=== PATIENT | female | born 1955 | race Caucasian/White ===

== ENCOUNTER 2018-07-13 13:41 | Emergency (ER) | payer OTHER ==
[~2018-07-13] VITALS: Ht 154.9 cm; Wt 98.4 kg
[2018-07-13 14:47] LABS: Source, Urine Clean Catch
[2018-07-13 14:57] LABS: Appearance, Urine Clear (Clear); Bilirubin, Urine Neg (Neg); Blood, Urine 5+ (Neg); Color, Urine Yellow (P-Yellow); Glucose Qualitative, Urine Neg (Neg); Ketones, Urine Neg (Neg); Leukocyte Esterase, Urine 1+ (Neg); Nitrite, Urine Neg (Neg); Protein, Urine 2+ (Neg); Specific Gravity, Urine 1.015 (1.003-1.022); Urobilinogen, Urine NORM (Normal)
[2018-07-13 15:02] LABS: BASOPHILS ABSOLUTE AUTO 0.07 K/mm3 (0.00-0.23); BASOPHILS PERCENT AUTO 1 % (0-2); EOSINOPHILS ABSOLUTE AUTO 0.45 K/mm3 (0.00-0.68); EOSINOPHILS PERCENT AUTO 5 % (0-6); Hematocrit 41.2 % (33.0-51.0); Hemoglobin 12.2 g/dL (11.5-16.0); IMMATURE GRAN ABSOLUTE AUTO 0.03 K/mm3 (0.00-0.10); IMMATURE GRAN PERCENT AUTO 0 % (0-1); LYMPHOCYTES ABSOLUTE AUTO 2.12 K/mm3 (0.84-5.20); LYMPHOCYTES PERCENT AUTO 24 % (21-46); MONOCYTES ABSOLUTE AUTO 0.64 K/mm3 (0.16-1.47); MONOCYTES PERCENT AUTO 7 % (4-13); Mean Corpuscular HGB 22.3 pg (26.0-34.0); Mean Corpuscular HGB Conc 29.6 g/dL (31.5-36.5); Mean Corpuscular Volume 76 fL (80-100); Mean Platelet Volume 9.9 fL (9.1-12.4); NEUTROPHILS ABSOLUTE AUTO 5.68 K/mm3 (1.96-9.15); NEUTROPHILS PERCENT AUTO 63 % (41-73); Platelet Count 323 K/mm3 (150-400); RDW Coefficient Variation 19.4 % (11.7-14.2); Red Blood Cell Count 5.46 M/mm3 (3.80-5.20); White Blood Cell Count 8.99 K/mm3 (4.00-11.30)
[2018-07-13 15:20] LABS: Bacteria Not Seen /hpf; Red Blood Cells, Urine 25-50 /hpf (0-2); Squamous Epithelial Cells Rare /hpf (Few)
[2018-07-13 15:30] LABS: Alanine Aminotransfer (ALT/SGP 24 U/L (12-78); Albumin, Blood 3.3 g/dL (3.4-5.0); Albumin/Globulin Ratio 0.7 (0.8-1.8); Alk Phos 94 U/L (50-136); Anion Gap 10 mmol/L (6-16); Aspartate Aminotrans (AST/SGOT 42 U/L (12-37); Bilirubin, Total 0.3 mg/dL (0.1-1.0); Blood Urea Nitrogen 19 mg/dL (8-24); Bun/Creatinine Ratio 20.3 (12.0-20.0); CO2, Blood 23 mmol/L (21-32); Calcium, Blood 10.4 mg/dL (8.5-10.1); Chloride, Blood 106 mmol/L (98-108); Creatinine, Blood 0.94 mg/dL (0.40-1.00); Glomerular Filtration Rate >60 (60-); Glucose, Blood 91 mg/dL (70-99); Potassium, Blood 3.6 mmol/L (3.5-5.5); Sodium, Blood 139 mmol/L (136-145); Total Protein, Blood 8.3 g/dL (6.4-8.2)
[2018-07-13 16:14] LABS: International Normalized Ratio 0.99; Prothrombin Time Results 10.5 Sec (9.7-11.5)
[2018-07-13 18:31] LABS: Test Name PTT
[2018-07-13] MEDS ORDERED: TRAM50 PO (21:23)
[2018-07-13] MEDS ORDERED: ONDA4ODT MM (21:23)
[2018-07-13] MEDS ORDERED: CYCL10 PO (21:23)
[2018-07-14 08:08] LABS: Result 25.4
== END 2018-07-13 21:39 | disposition home or self-care (01) ==
LOC: ER 13:41
PROVIDERS: Physician Assistant
DX: N85.8 Other specified noninflammatory disorders of uterus (principal); I10 Essential (primary) hypertension; E11.9 Type 2 diabetes mellitus without complications; J44.9 Chronic obstructive pulmonary disease, unspecified; Z88.5 Allergy status to narcotic agent; Z88.8 Allergy status to other drugs, medicaments and biological substances; Z88.1 Allergy status to other antibiotic agents
CPT/HCPCS: 36415; 74177; 80053; 81001; 83690; 84484; 85025; 85610; 85730; 87086; 93005; 93010; 99284-25; Q9967

== ENCOUNTER 2018-08-10 09:08 | Inpatient (IN) | payer OTHER ==
[~2018-08-10] VITALS: Ht 154.9 cm; Wt 96.8 kg
[~2018-08-10 09:08] MED LIST: CYCL10 PO; ONDA4ODT MM; TRAM50 PO
[2018-08-10] MEDS ORDERED: GAVILAX17 GM PO (10:24)
[2018-08-10] MEDS ORDERED: ALLO100 PO (10:24)
[2018-08-10] MEDS ORDERED: OXYC5 PO (10:24)
[2018-08-10] MEDS ORDERED: XARELTO20 MG PO (10:24)
[2018-08-10] MEDS ORDERED: Senna Plus Tab1 EACH PO (10:25)
[2018-08-10 11:13] LABS: BASOPHILS ABSOLUTE AUTO 0.04 K/mm3 (0.00-0.23); BASOPHILS PERCENT AUTO 0 % (0-2); EOSINOPHILS PERCENT AUTO 1 % (0-6); Hematocrit 27.3 % (33.0-51.0); Hemoglobin 8.4 g/dL (11.5-16.0); IMMATURE GRAN ABSOLUTE AUTO 0.11 K/mm3 (0.00-0.10); IMMATURE GRAN PERCENT AUTO 1 % (0-1); LYMPHOCYTES ABSOLUTE AUTO 1.09 K/mm3 (0.84-5.20); LYMPHOCYTES PERCENT AUTO 9 % (21-46); MONOCYTES PERCENT AUTO 5 % (4-13); Mean Corpuscular HGB 22.6 pg (26.0-34.0); Mean Corpuscular HGB Conc 30.8 g/dL (31.5-36.5); Mean Corpuscular Volume 74 fL (80-100); NEUTROPHILS ABSOLUTE AUTO 10.23 K/mm3 (1.96-9.15); NEUTROPHILS PERCENT AUTO 84 % (41-73); Platelet Count 233 K/mm3 (150-400); RDW Coefficient Variation 19.3 % (11.7-14.2); RDW Standard Deviation 50.6 fL (35.1-46.3); Red Blood Cell Count 3.71 M/mm3 (3.80-5.20); White Blood Cell Count 12.17 K/mm3 (4.00-11.30)
[2018-08-10 11:45] LABS: Albumin, Blood 2.4 g/dL (3.4-5.0); Albumin/Globulin Ratio 0.6 (0.8-1.8); Bilirubin, Total 0.3 mg/dL (0.1-1.0); Bun/Creatinine Ratio 10.8 (12.0-20.0); Calcium, Blood 9.9 mg/dL (8.5-10.1); Creatinine, Blood 7.79 mg/dL (0.40-1.00); Globulin, Blood 4.3 g/dL (2.2-4.0); Potassium, Blood 4.1 mmol/L (3.5-5.5); Total Protein, Blood 6.7 g/dL (6.4-8.2)
[2018-08-10] MEDS ORDERED: **INCOMPLETE MED REC (14:23)
[2018-08-10] MEDS ORDERED: TRAM50 PO (14:50)
[2018-08-10] MEDS ORDERED: ONDA8 PO (14:55)
[2018-08-10 16:14] LABS: Appearance, Urine Cloudy (Clear); Bilirubin, Urine Neg (Neg); Blood, Urine 5+ (Neg); Color, Urine Red (P-Yellow); Glucose Qualitative, Urine Neg (Neg); Ketones, Urine 1+ (Neg); Leukocyte Esterase, Urine 2+ (Neg); Nitrite, Urine Neg (Neg); Protein, Urine 4+ (Neg); Urobilinogen, Urine NORM (Normal)
[2018-08-10 16:28] LABS: Red Blood Cells, Urine TNTC /hpf (0-2)
[2018-08-10 16:29] LABS: Bacteria Few /hpf; Squamous Epithelial Cells Few /hpf (Few)
--- NOTE | 2018-08-10 16:49 | NUR ---
ADMIT PT REPORT RECEIVED FROM ER. PT ARRIVED VIA GURNEY. PT ALERT AND ORIENTED. BILATERAL LEGS RED. ELEVATED LEGS ON PILLOW. DR LIN AWARE OF PT ADMIT. CONTINUE POT.
[2018-08-10 17:54] LABS: Magnesium, Blood 1.7 mg/dL (1.6-2.4); Phosphorus, Blood 5.5 mg/dL (2.5-4.9)
--- NOTE | 2018-08-10 19:40 | NUR ---
ASSUMED CARE PT RESTING IN ROOM COMFORTABLY W/ SPOUSE AT BEDSIDE. PER DAY SHIFT PT HAS BEEN EMOTIAL AT TIMES WITH DIAGNOSIS. PT HAD BEEN MEDICATED IN ED PRIOR TO ARRIVAL FOR PAIN AND HAS NOT HAD ANY FURTHER PAIN SINCE ARRIVAL. PT BLE RED AND SWOLLEN, ELEVATED ON PILLOWS. PT REPORTS ABD THAT NEVER FULLY GOES AWAY. RESP EVEN UNLABORED ON RA. SATS >92%. PT TO BE TRANSPORTED TO [facility] AND HOME VIA [facility] FOR UROLOGY CONSULT. PT AWARE. CALL LIT IN REACH. PT CALLS APPROPRIATELY.
[2018-08-10 22:09] LABS: Bun/Creatinine Ratio 10.7 (12.0-20.0); Creatinine, Blood 8.77 mg/dL (0.40-1.00); Potassium, Blood 4.6 mmol/L (3.5-5.5)
[2018-08-10 23:05] LABS: Source, Urine Catheter
[2018-08-10 23:19] LABS: Appearance, Urine Cloudy (Clear); Bilirubin, Urine Neg (Neg); Blood, Urine 5+ (Neg); Color, Urine Red (P-Yellow); Glucose Qualitative, Urine Neg (Neg); Ketones, Urine 1+ (Neg); Leukocyte Esterase, Urine 3+ (Neg); Nitrite, Urine Pos (Neg); Protein, Urine 3+ (Neg); Specific Gravity, Urine 1.015 (1.003-1.022); Urobilinogen, Urine NORM (Normal)
[2018-08-10 23:34] LABS: Bacteria Many /hpf; Red Blood Cells, Urine TNTC /hpf (0-2); Squamous Epithelial Cells Mod /hpf (Few); White Blood Cells, Urine 25-50 /hpf (0-5)
[2018-08-11 04:28] LABS: Hematocrit 28.9 % (33.0-51.0); Hemoglobin 8.6 g/dL (11.5-16.0); Mean Corpuscular HGB 22.1 pg (26.0-34.0); Mean Corpuscular HGB Conc 29.8 g/dL (31.5-36.5); Mean Corpuscular Volume 74 fL (80-100); Platelet Count 308 K/mm3 (150-400); RDW Coefficient Variation 19.4 % (11.7-14.2); RDW Standard Deviation 51.6 fL (35.1-46.3); Red Blood Cell Count 3.89 M/mm3 (3.80-5.20); White Blood Cell Count 14.76 K/mm3 (4.00-11.30)
[2018-08-11 04:58] LABS: Bun/Creatinine Ratio 10.9 (12.0-20.0); Calcium, Blood 9.5 mg/dL (8.5-10.1); Creatinine, Blood 9.05 mg/dL (0.40-1.00); Potassium, Blood 4.5 mmol/L (3.5-5.5)
--- NOTE | 2018-08-11 06:50 | NUR ---
SHIFT SUMMARY PT SLEEPING IN ROOM COMFORTABLY. PT HAS SEVERAL STATUS CHANGES T/O NIGHT. PT ABD PAIN CHANGED IN INTENSITY AND QUALITY. PT DESCRIBED PAIN STABBING, AND SHARP, VERSUS PREVIOUS CRAMPING. PT WAS ABLE TO STAND TO BSC W/ SBA AND TOLERATED FAIR. REPORTS PAIN INCREASED IN ABD WHEN MOVING. PT WAS MEDICATED FOR PAIN, NAUSEA, AND REFLUX PER EMAR T/O SHIFT. URINE REMAINS BLOOD TINGED. PT CREAT LEVEL CONTINUES TO CLIMB AND PT IS AWAITING A BED AT [facility] WITH UROLOGY THIS AM FOR TRANSFER. CALL LIGHT IN REACH. PT CALLS APPROPRIATELY.
--- NOTE | 2018-08-11 12:04 | NUR ---
Spiritual care visit conducted. I entered patient's room and introduced myself. Patient immediately openly shared about her medical condition and her emotional/spiritual struggle as she tries to process what all the doctor's reports mean to her life and being. I listened empathically, provided pastoral correctional counselor, provided emotional support and companionship and provided prayer. Patient responded well and was tearful and appreciative of my time and care.
--- NOTE | 2018-08-11 19:09 | NUR ---
END OF SHIFT; PT WAITING FOR TRANSFER TO [facility]. UROLOGY HAS ACCEPTED [facility] HOWEVER NO BED IS AVAILABLE. CALLED TRANSFER CENTER X 2 TODAY AND EARLIEST BED MAY BE AVAILABLE IN LATE NIGHT TONIGHT. PT IS UPDATED ON WAIT. VERBALIZED UNDERSTANDING.
--- NOTE | 2018-08-12 01:23 | NUR ---
CALL TO MD FOR PT'S PAIN PT STATES "MY PAIN IS CHANGING. IT'S INTENSIFYING." PT STATES FENTANYL TO HAVE BRIEFLY HELPED CONTINUING ABDOMINAL PAIN. CALL TO MD MILLER W/ ORDERS GIVEN TO DC IV FENTANYL AND REPLACE W/ IV DILAUDID, SEE E-MAR.
[2018-08-12 05:24] LABS: BASOPHILS ABSOLUTE AUTO 0.04 K/mm3 (0.00-0.23); BASOPHILS PERCENT AUTO 0 % (0-2); EOSINOPHILS ABSOLUTE AUTO 0.15 K/mm3 (0.00-0.68); EOSINOPHILS PERCENT AUTO 1 % (0-6); Hematocrit 27.7 % (33.0-51.0); Hemoglobin 8.4 g/dL (11.5-16.0); IMMATURE GRAN ABSOLUTE AUTO 0.09 K/mm3 (0.00-0.10); IMMATURE GRAN PERCENT AUTO 1 % (0-1); LYMPHOCYTES ABSOLUTE AUTO 1.39 K/mm3 (0.84-5.20); LYMPHOCYTES PERCENT AUTO 9 % (21-46); MONOCYTES ABSOLUTE AUTO 1.02 K/mm3 (0.16-1.47); MONOCYTES PERCENT AUTO 7 % (4-13); Mean Corpuscular HGB 22.5 pg (26.0-34.0); Mean Corpuscular HGB Conc 30.3 g/dL (31.5-36.5); Mean Corpuscular Volume 74 fL (80-100); NEUTROPHILS ABSOLUTE AUTO 12.36 K/mm3 (1.96-9.15); NEUTROPHILS PERCENT AUTO 82 % (41-73); Platelet Count 281 K/mm3 (150-400); RDW Coefficient Variation 19.8 % (11.7-14.2); RDW Standard Deviation 52.7 fL (35.1-46.3); Red Blood Cell Count 3.73 M/mm3 (3.80-5.20); White Blood Cell Count 15.05 K/mm3 (4.00-11.30)
--- NOTE | 2018-08-12 05:36 | NUR ---
SHIFT SUMMARY PT AWAITING BED AT [facility]. CALL TO LINDEN W/ INQUIRY ABOUT BED AVAILABILITY THIS AM @ 0530. [facility] CENTER SPECIALIST STATES NOT LIKELY UNTIL LATE AFTERNOON AFTER DISCHARGES OCCUR IN THEIR FACILITY. [facility] SPECIALIST STATES THEY WILL CALL W/ NOTIFICATION OF BED ASSIGNMENT WHEN AVAILABLE. PT A&O X4. PT MOANING AND CRYING OUT "OW" W/ C/O "INTENSIFYING" PAIN DURING NIGHT W/ LITTLE TO NO RELIEF FROM ORDERED FENTANYL. CALL TO MD MILLER W/ NEW ORDERS FOR IV DILAUDID IN PLACE OF FENTANYL, SEE E-MAR. PT STATES DILAUDID TO HAVE BEEN MORE EFFECTIVE W/ TREATING PT'S ABDOMINAL PAIN. PT UP TO BSC MULTIPLE TIMES THIS SHIFT W/ PASSING OF DARK RED BLOOD W/ OCCASSIONAL SMALL CLOTS WHEN URINATING. PT C/O FEELING THE NEED TO PEE MORE WHEN GETTING BACK IN BED AFTER BSC USE. PT ALSO C/O DRY ITCHY SKIN, LOTION APPLIED W/ IMPROVEMENT. PT LUNG SOUNGS CLEAR, SPO2 > 92% ON RA. MONITOR SHOWS NSR, HR 80'S-90'S. BLE +2 EDEMA, HOT AND RED. NOTED HX OF DVT R/O W/ BILAT VENOUS DUPLEX 08/10/18. PT COPING WELL CONSIDERING CIRCUSTANCES. PT LAUGHS AND STATES "SHIT HAPPENS" AND STATES "I'M SORRY I'M GRUMPY." PT COMFORTED AND ENCOURAGED. PT'S IN TO SEE PT THIS SHIFT. PT CONCERNED ABOUT , STATING "WHAT WILL HAPPEN TO HIM WHEN I ?" PT IN BED SLEEPING W/ CALL LIGHT IN REACH. WILL CONTINUE TO MONITOR AND PROVIDE CARE UNTIL REPORT OFF TO DAY SHIFT RN.
[2018-08-12 06:09] LABS: Albumin, Blood 2.4 g/dL (3.4-5.0); Anion Gap 17 mmol/L (6-16); Blood Urea Nitrogen 105 mg/dL (8-24); CO2, Blood 19 mmol/L (21-32); Calcium, Blood 8.4 mg/dL (8.5-10.1); Chloride, Blood 98 mmol/L (98-108); Glucose, Blood 98 mg/dL (70-99); Phosphorus, Blood 4.1 mg/dL (2.5-4.9); Potassium, Blood 4.6 mmol/L (3.5-5.5); Sodium, Blood 134 mmol/L (136-145)
[2018-08-12 06:11] LABS: Bun/Creatinine Ratio 10.4 (12.0-20.0); Glomerular Filtration Rate 4 (60-)
--- NOTE | 2018-08-12 12:15 | NUR ---
Initial palliative care consult: Laura is a 63 year old with a history of morbid obesity, depression, HTN, pre-diabetes, migraines, COPD and was recently diagnosed about one month ago according to her DILMahogany, with uterine cancer. She has had an outpatient consult with Dr. Groves and was supposed to have a PET scan done yesterday for staging and planning for treatment options according to Mahogany. Attempted to have pt and her son and KINZA talk to this loan underwriter about what the doctors have told them. DIL and son both state that Laura needs to have a urological procedure to relieve her hydronephrosis. They are concerned that pt has been accepted by a urologist in [place], however, due to no bed availability pt isn't able to be transferred to [place] until there is a bed available. This is very frustrating for the family as well as the pt. They don't really talk about her cancer, they are more focused on the urological issues at this time. I spoke with Dr. Chavarria and asked her to come speak with pt and family. Dr. Chavarria states she has told Laura and her family about her CT scans and prognosis. It appears that family and Laura may very likely be in denial about the seriousness of her condition and how advanced her cancer is. Dr. Chavarria states she will come speak with the family again. Requested that Dr. Chavarria take either pt's nurse or a PC in the room with her when she has this conversation with pt and family. Staff will be able to reinforce what Dr. Chavarria explains to them. PC will help with short term and continued care once family has the information that they need. Pt reports her abd discomfort is "better" than it was prior to her pain medication. She is having periods of nausea despite IV zofran. Consulted with pharmacist for options for nausea treatment. Dr. Chavarria changed frequency of zofran dosing. Phenergan and compazine could both be options as both are primarily metabolized by the liver. Pt does have liver mets. Peppermint patch given to pt for aroma therapy for her nausea. Explained to pt and family how to use this patch.
--- NOTE | 2018-08-12 14:38 | NUR ---
Spiritual care visit conducted. Patient was sitting up on the side of the bed with a vomit bag in her hand and asked if I could come back another time. I stepped out of the room and her stopped me and shared with me his stress about the patient's decisions and about her confusion. He also stated that he was concerned about the delay in the transfer to the hospital that agreed to do a surgical procedure on the patient. I listened empathically, normalized his experience, provided anxiety containment and companionship. Patient's spouse responded well and showed signs of reduced stress.
--- NOTE | 2018-08-12 15:20 | NUR ---
Long conversation with Laura and her family. This service writer advisor was present during Dr. Chavarria's visit with pt and family this afternoon. Dr. Chavarria explained that she will have Dr. Khan come consult re: HD for this pt while she is waiting to be able to be transferred to [place] or another facility that may be able to complete the procedure for her hydronephrosis. Dr. Chavarria stated that pt's CT scan showed metastasis of her cancer. After Dr. Chavarria stepped out of pt's room, this service writer advisor asked what they understood about the CT results. They stated that they didn't remember hearing about the CT results. Explained to them what metastasis means and pt confirmed that "I have a very aggressive cancer." Explained to pt and family the different stages of cancer and what each stage was. Explained to family that Dr. Groves will be able to clearly explain CT results and review her prognosis with her. Family requests that Dr. Groves come speak with them. Called Dr. Groves's office and spoke with him directly. Briefly reviewed CT results from 08/10/[address] Groves. He stated he will be in to see pt this afternoon. Per Dr. Groves's office staff, pt is scheduled to begin cancer treatment on 08/17/18. Pt did state during my visit that she was thinking that she did not want to do any cancer treatment. Family is open to receiving information re: hospice and would like some materials to read. Angi stated she had mentioned hospice to family and they wanted info. Hard choices for loving people booklet along with hospice and comfort care brochures given to Mahogany, pt's KINZA. She was appreciative of the materials. Briefly explained code status and DIL and son who were in the room at the time with pt both stated that they know she wouldn't want to be on machines to live. Laura received dilaudid recently and now isn't the time for her to answer this question for herself as she falls asleep sometimes when spoken too. Encouraged family to talk about code status wishes. Explained to family that currently pt is a full code. They stated they would think about it. Will plan to talk with pt when she is more alert about her code status. Nursing updated on conversations and Dr. Groves's planned visit later this afternoon. PC will continue to follow for symptom managment and advanced care planning.
--- NOTE | 2018-08-12 17:23 | NUR ---
PATIENT PERMISSION PATIENT GAVE PERMISSION FOR ME TO CARE FOR HER 08/13/18
--- NOTE | 2018-08-12 18:56 | NUR ---
Luara tells me she is a member of the [employer] community and denied prayer and spiritual support. She says her synagogue is aware she is hospitalized. Laura's , Arnoldo, is Taoism. He has responded well to Web Machine Tender Yosef Jimenez who will be providing continued support to spouse as schedule permits.
[2018-08-13 05:12] LABS: BASOPHILS ABSOLUTE AUTO 0.03 K/mm3 (0.00-0.23); BASOPHILS PERCENT AUTO 0 % (0-2); EOSINOPHILS ABSOLUTE AUTO 0.03 K/mm3 (0.00-0.68); EOSINOPHILS PERCENT AUTO 0 % (0-6); Hematocrit 29.8 % (33.0-51.0); Hemoglobin 9.1 g/dL (11.5-16.0); IMMATURE GRAN ABSOLUTE AUTO 0.14 K/mm3 (0.00-0.10); IMMATURE GRAN PERCENT AUTO 1 % (0-1); LYMPHOCYTES ABSOLUTE AUTO 1.14 K/mm3 (0.84-5.20); LYMPHOCYTES PERCENT AUTO 6 % (21-46); MONOCYTES PERCENT AUTO 5 % (4-13); Mean Corpuscular HGB 22.5 pg (26.0-34.0); Mean Corpuscular HGB Conc 30.5 g/dL (31.5-36.5); Mean Corpuscular Volume 74 fL (80-100); Mean Platelet Volume 9.8 fL (9.1-12.4); NEUTROPHILS PERCENT AUTO 87 % (41-73); Platelet Count 315 K/mm3 (150-400); RDW Standard Deviation 53.1 fL (35.1-46.3); Red Blood Cell Count 4.04 M/mm3 (3.80-5.20); White Blood Cell Count 17.84 K/mm3 (4.00-11.30)
[2018-08-13 05:49] LABS: Albumin, Blood 2.4 g/dL (3.4-5.0); Anion Gap 19 mmol/L (6-16); Blood Urea Nitrogen 115 mg/dL (8-24); CO2, Blood 18 mmol/L (21-32); Calcium, Blood 8.4 mg/dL (8.5-10.1); Chloride, Blood 96 mmol/L (98-108); Glomerular Filtration Rate 4 (60-); Glucose, Blood 90 mg/dL (70-99); Phosphorus, Blood 5.7 mg/dL (2.5-4.9); Potassium, Blood 4.8 mmol/L (3.5-5.5); Sodium, Blood 133 mmol/L (136-145)
--- NOTE | 2018-08-13 06:38 | NUR ---
SHIFT SUMMARY PT A&O X4. PT CONTINUES TO BE NAUSEOUS AND PAINFUL T/O SHIFT, MEDICATING PT PER EMAR. PT STATES PAIN TO BE IN ABDOMEN, THROAT, AND CENTER OF CHEST. PT NPO AFTER MIDNIGHT, AWAITING POTENTIAL BILAT NEPHROSTOMY PLACEMENT. AT PT BEDSIDE THIS MORNING. PT AND TEARFUL IN ROOM. PT STATES "I'M READY FOR THIS TO BE OVER." PT HAVING MOMENTS OF OPTIMISM AND DISCOURAGEMENT. TIME SPENT COMFORTING AND ENCOURAGING PT. PT ASSISTED TO BSC FOR MULTIPLE EPISODES OF PASSING BLOODY URINE AND 2 BM'S. PT SLOW TO GET UP, STATING "I'M GETTING WEAK." PT BLE CONTINUE TO BE EDEMATOUS. ONE TIME DOSE OF IV BUMEX GIVEN PER ORDERS. PT IN BED W/ CALL LIGHT IN REACH. WILL CONTINUE TO MONITOR AND PROVIDE CARE UNTIL REPORT OFF TO DAY SHIFT RN.
--- NOTE | 2018-08-13 11:51 | NUR ---
Spiritual care visit conducted. I again was stopped by patient's , Arnoldo, in the sullivan outside patient's room. Arnoldo gave me some updates on patient's condition and the timing for dialysis. I also checked in on Arnoldo's emotional health and his energy level. I listened empathically, encouraged self-care and provided companionship. Arnoldo responded well and thanked me for the visit.
--- NOTE | 2018-08-13 13:25 | NUR ---
SHE WENT TO [facility] BY BED AT 1300 FOR BILATERAL NEPHROSTOMY TUBE PLACEMENT BY THE RADIOLOGICAL INTERVENTIONALIST. SHE HAS BEEN ANXIOUS OFF AND ON THIS MORNING. SHE HAS HAD MULTIPLE VISITORS. THE STUDENT NURSE GAVE HER A TOTAL BEDBATH. LEGS HAVE BEEN ELEVATED ON A PILLOW EACH. SHE HAS HAD HIGH BP. I GAVE HER A PRN DOSE OF HYDRALAZINE FOR A BP OF 178/98. SHE HAD AN EPISODE OF CP A FEW MINUTES LATER. O2 2L PUT ON DURING CP EPISODE. I RELAYED THIS EVENT TO THE [facility] RN. I ALSO TALKED WITH ABOUT THE HYDRALAZINE PRECAUTIONS AND CP. SHE SAID SHE WOULD DC IT AND PROBABLY ORDER LABETOLOL PRN INSTEAD. SHE HAS NOT NEEDED DILAUDID THIS MORNING BUT DID RECEIVE ZOFRAN FOR NAUSEA. NO EMESIS. ALL LABS WORSENED TODAY. LOWER LEGS ARE RED. EDEMA IS MOST EVIDENT BELOW THE KNEES.
--- NOTE | 2018-08-13 15:46 | NUR ---
R AND L NEPHROSTOMY DRAINAGE MEASURED AND EMPTIED. RESULTS CALLED TO . ORDER FOR BUMEX OBTAINED. THE URINE FROM THE R NEPH. TUBE IS DARK JUDD. THE L NEPH. URINE IS PALE PINK. BOTH ARE HAZY. SHE IS STILL SLEEPY BUT CALLS OUT IN PAIN WHEN SHE BRIEFLY AWAKENS FOR SECONDS. VSS.
--- NOTE | 2018-08-13 18:29 | NUR ---
SHE HAD BILATERAL NWPHROSTOMY TUBES PLACED TODAY. THEY ARE DRAINING WELL. BUMEX IV GIVEN X1 PER ORDER. HE HAS BEEN UPDATED ON HER OUTPUTS X2. HE SAYS HE WILL CALL AGAIN THIS EVENING. KIT IS A LITTLE CONFUSED. BED ALARM ON NOW. SHE HAS DRANK WATER BUT NO FOOD INTAKE YET. SHE WAS GIVEN DILAUDID X1 SINCE RETUTN FROM PROCEDURE. SHE WAKES UP EASILY AND FREQUENTLY BUT FALLS BACK OFF TO SLEEP. SHE IS ALWAYS UNCOMFORTABLE OR HAS PAIN. THE RIGHT NEPH.TUBE PUTS OUT LIGHT SOLIS RED URINE. THE LEFT NEPH.TUBE IS PUTTING OUT YELLOW URINE NOW. HAS BEEN PRESENT ALL DAY.
[2018-08-14 04:12] LABS: BASOPHILS ABSOLUTE AUTO 0.03 K/mm3 (0.00-0.23); BASOPHILS PERCENT AUTO 0 % (0-2); EOSINOPHILS ABSOLUTE AUTO 0.01 K/mm3 (0.00-0.68); EOSINOPHILS PERCENT AUTO 0 % (0-6); Hematocrit 28.3 % (33.0-51.0); Hemoglobin 8.6 g/dL (11.5-16.0); IMMATURE GRAN ABSOLUTE AUTO 0.09 K/mm3 (0.00-0.10); IMMATURE GRAN PERCENT AUTO 1 % (0-1); LYMPHOCYTES ABSOLUTE AUTO 0.87 K/mm3 (0.84-5.20); LYMPHOCYTES PERCENT AUTO 6 % (21-46); MONOCYTES ABSOLUTE AUTO 0.82 K/mm3 (0.16-1.47); MONOCYTES PERCENT AUTO 6 % (4-13); Mean Corpuscular HGB 22.5 pg (26.0-34.0); Mean Corpuscular HGB Conc 30.4 g/dL (31.5-36.5); Mean Corpuscular Volume 74 fL (80-100); NEUTROPHILS ABSOLUTE AUTO 11.92 K/mm3 (1.96-9.15); NEUTROPHILS PERCENT AUTO 87 % (41-73); Platelet Count 339 K/mm3 (150-400); RDW Coefficient Variation 20.3 % (11.7-14.2); RDW Standard Deviation 52.9 fL (35.1-46.3); Red Blood Cell Count 3.83 M/mm3 (3.80-5.20); White Blood Cell Count 13.74 K/mm3 (4.00-11.30)
[2018-08-14 04:36] LABS: Magnesium, Blood 1.9 mg/dL (1.6-2.4)
[2018-08-14 04:41] LABS: Albumin, Blood 2.4 g/dL (3.4-5.0); Anion Gap 16 mmol/L (6-16); Blood Urea Nitrogen 115 mg/dL (8-24); Bun/Creatinine Ratio 11.4 (12.0-20.0); CO2, Blood 19 mmol/L (21-32); Calcium, Blood 8.2 mg/dL (8.5-10.1); Chloride, Blood 101 mmol/L (98-108); Glomerular Filtration Rate 4 (60-); Glucose, Blood 103 mg/dL (70-99); Phosphorus, Blood 5.8 mg/dL (2.5-4.9); Potassium, Blood 4.3 mmol/L (3.5-5.5); Sodium, Blood 136 mmol/L (136-145)
--- NOTE | 2018-08-14 04:59 | NUR ---
SHIFT SUMMARY PT HAS CALLED FREQUENTLY THIS SHIFT. STAFF IN ROOM UP TO AN HOUR AT A TIME FOR VARIOUS NEEDS. PT REQUESTS TO BE REPOSITIONED FREQUENTLY, AND FOR ICE CHIPS. PT ALSO REQUESTS TO GET UP TO USE BEDSIDE COMMODE. DESPITE THE TWO NEPHROSTOMIES IN PLACE THAT ARE PATENT AND DRAINING WELL. PT WANTS TO GET UP TO THE BEDSIDE COMMODE. SHE STATES SHE FEELS LIKE SHE CAN GO. WHEN I EXPLAIEND THAT SHE HAS TUBES IN PLACE THAT ARE DRAINING HER BLADDER, SHE HAD A DIFFICULT TIME GRASPING THE CONCEPT. PT STILL HAS HAD SOME OUTPUT, BUT IT IS A SCANT AMOUNT INCONTINENT IN HER PULL UPS. PT IS ALERT AND ORIENTED TO WHERE SHE IS, AND WHO SHE IS, BUT IS SLOWER TO RESPOND, AND STRUGGLES TO FIND THE RIGHT WORDS WHEN SHE IS TALKING. PT COMPLAINS OF OFF AND ON NAUSEA. MEDICATED WITH ZOFRAN. SHE ALSO COMPLAINS OF ABD PAIN, MEDICATED WITH DILAUDID WITH AFFECT. RIGHT NEPHROSTOMY IS DRAINING CRANBERRY COLORED URINE, OUTPUT ADEQUATE. LEFT NEPHROSTOMY, DRAINING YELLOW URINE THAT IS SLIGHTLY PINK TINGED, OUTPUT ADEQUATE. PT CONTINUES TO AMBULATE WITH 1 PA, BUT IS WEAK. RADIOLOGIST IN TO SPEAK WITH REGARDING NEPHROSTOMY AT THE BEGINNING OF THE SHIFT. VITALS STABLE. NO OTHER CHANGES TO REPORT. WILL CONTINUE TO MONITOR AND REPORT TO ONCOMING RN.
--- NOTE | 2018-08-14 08:00 | NUR ---
PT PLEASANT COOP TRIES TO CAPTURE WITH LONG VERBOSE VERBAGE WHEN IN ROOM. HAVE HAD TO LIMIT TALKING TO GET TO POINT. STATES PAIN MANAGED AT THIS POINT. H/R REG, NO MURMER NOTED. TELE REMOVED PER ORDER. LUNGS CLEAR, RESP EASY, UNLABORED. ON R/A. BTX4 LAST BM LAST NITE, MED. PER PT. VIODS VERY LITTLE. TWO BILAT NEPHROSTOMY TUBES. LEFT DRAINING DARK YELLOW FLUID, RT DRAINING DRK JOSÉ FLUID. SMALL < 1/4 INCH PUNCTURE HOLE IN MID FRONT ABD. DOT NET ARCHITECT. PLACED 2X2 AND TAPED. NO OTHER CONCERNS AT THIS TIME.
--- NOTE | 2018-08-14 11:41 | NUR ---
Spiritual care visit conducted. I met with patient's spouse, Arnoldo and son, Saleem in the hallway outside patient's room. Patient had a spiritual leader from the [employer] group in her room at the time I visited with the family. Arnoldo and Son processed their feelings outloud about the health crisis of the patient and how her illness was impacting them. I listened empathically, normalized their experience and provided a calming presence. Family responded well to the interventions and showed signs of reduced stress. They both thanked me for the visit.
--- NOTE | 2018-08-14 12:13 | NUR ---
PT OUT DOOR TO MEDICAL AT 1210
--- NOTE | 2018-08-14 12:14 | NUR ---
1137 REPOET CALLED TO GIBSON [place] RN
--- NOTE | 2018-08-14 17:35 | NUR ---
SHIFT SUMMARY PATIENT A&O X4. PCU TRANSFER. MEDICATED PER E MAR FOR LOWER ABD PAIN AND CRAMPING. PATIENT DENIES SOB. LEFT AND RIGHT NEPHROSTOMY TUBES PATENT AND DRAINING TO ALVARADO BAG. NO ACUTE CHANGES THIS SHIFT. RN WILL CONTINUE TO MONITOR.
[2018-08-15 05:19] LABS: BASOPHILS ABSOLUTE AUTO 0.04 K/mm3 (0.00-0.23); BASOPHILS PERCENT AUTO 0 % (0-2); EOSINOPHILS ABSOLUTE AUTO 0.01 K/mm3 (0.00-0.68); EOSINOPHILS PERCENT AUTO 0 % (0-6); Hematocrit 29.9 % (33.0-51.0); Hemoglobin 9.1 g/dL (11.5-16.0); IMMATURE GRAN ABSOLUTE AUTO 0.18 K/mm3 (0.00-0.10); IMMATURE GRAN PERCENT AUTO 1 % (0-1); LYMPHOCYTES ABSOLUTE AUTO 1.17 K/mm3 (0.84-5.20); LYMPHOCYTES PERCENT AUTO 7 % (21-46); MONOCYTES ABSOLUTE AUTO 1.34 K/mm3 (0.16-1.47); MONOCYTES PERCENT AUTO 8 % (4-13); Mean Corpuscular HGB 22.3 pg (26.0-34.0); Mean Corpuscular HGB Conc 30.4 g/dL (31.5-36.5); Mean Corpuscular Volume 73 fL (80-100); Mean Platelet Volume 9.8 fL (9.1-12.4); NEUTROPHILS ABSOLUTE AUTO 14.29 K/mm3 (1.96-9.15); NEUTROPHILS PERCENT AUTO 84 % (41-73); Platelet Count 365 K/mm3 (150-400); RDW Coefficient Variation 20.4 % (11.7-14.2); RDW Standard Deviation 52.5 fL (35.1-46.3); Red Blood Cell Count 4.08 M/mm3 (3.80-5.20); White Blood Cell Count 17.03 K/mm3 (4.00-11.30)
[2018-08-15 05:49] LABS: Albumin, Blood 2.5 g/dL (3.4-5.0); Anion Gap 15 mmol/L (6-16); Blood Urea Nitrogen 91 mg/dL (8-24); Bun/Creatinine Ratio 15.1 (12.0-20.0); CO2, Blood 21 mmol/L (21-32); Chloride, Blood 102 mmol/L (98-108); Creatinine, Blood 6.02 mg/dL (0.40-1.00); Glomerular Filtration Rate 8 (60-); Glucose, Blood 124 mg/dL (70-99); Magnesium, Blood 1.7 mg/dL (1.6-2.4); Phosphorus, Blood 3.8 mg/dL (2.5-4.9); Potassium, Blood 3.6 mmol/L (3.5-5.5); Sodium, Blood 138 mmol/L (136-145)
[2018-08-15 06:24] LABS: Bun/Creatinine Ratio 14.4 (12.0-20.0); Calcium, Blood 8.1 mg/dL (8.5-10.1); Creatinine, Blood 5.97 mg/dL (0.40-1.00); Potassium, Blood 3.6 mmol/L (3.5-5.5)
--- NOTE | 2018-08-15 07:25 | NUR ---
a+o, call light in reach, walking rounds completed with day staff, saline locked, abdm pain not well controlled with prescribed med
--- NOTE | 2018-08-15 18:13 | NUR ---
NO ACUTE CHANGES NOTED THIS SHIFT. PHYSICAL THERAPY EVAL COMPLETED THIS AFTERNOON. SEE PT NOTES. NEPHROSTOMY TUBES DRAINING WELL. WILL CONTINUE TO MONITOR AND REPORT TO ONCOMING RN
[2018-08-16 05:06] LABS: BASOPHILS ABSOLUTE AUTO 0.05 K/mm3 (0.00-0.23); BASOPHILS PERCENT AUTO 0 % (0-2); EOSINOPHILS ABSOLUTE AUTO 0.04 K/mm3 (0.00-0.68); EOSINOPHILS PERCENT AUTO 0 % (0-6); Hemoglobin 8.4 g/dL (11.5-16.0); IMMATURE GRAN ABSOLUTE AUTO 0.14 K/mm3 (0.00-0.10); IMMATURE GRAN PERCENT AUTO 1 % (0-1); LYMPHOCYTES ABSOLUTE AUTO 1.44 K/mm3 (0.84-5.20); LYMPHOCYTES PERCENT AUTO 10 % (21-46); MONOCYTES ABSOLUTE AUTO 0.95 K/mm3 (0.16-1.47); MONOCYTES PERCENT AUTO 7 % (4-13); Mean Corpuscular HGB 22.3 pg (26.0-34.0); Mean Corpuscular Volume 75 fL (80-100); Mean Platelet Volume 9.7 fL (9.1-12.4); NEUTROPHILS ABSOLUTE AUTO 11.37 K/mm3 (1.96-9.15); NEUTROPHILS PERCENT AUTO 81 % (41-73); Platelet Count 303 K/mm3 (150-400); RDW Coefficient Variation 20.5 % (11.7-14.2); RDW Standard Deviation 53.6 fL (35.1-46.3); Red Blood Cell Count 3.76 M/mm3 (3.80-5.20); White Blood Cell Count 13.99 K/mm3 (4.00-11.30)
[2018-08-16 05:40] LABS: Albumin, Blood 2.3 g/dL (3.4-5.0); Anion Gap 12 mmol/L (6-16); Blood Urea Nitrogen 66 mg/dL (8-24); Bun/Creatinine Ratio 17.6 (12.0-20.0); CO2, Blood 25 mmol/L (21-32); Chloride, Blood 101 mmol/L (98-108); Creatinine, Blood 3.74 mg/dL (0.40-1.00); Glomerular Filtration Rate 13 (60-); Glucose, Blood 101 mg/dL (70-99); Magnesium, Blood 1.3 mg/dL (1.6-2.4); Phosphorus, Blood 3.2 mg/dL (2.5-4.9); Potassium, Blood 2.9 mmol/L (3.5-5.5); Sodium, Blood 138 mmol/L (136-145)
--- NOTE | 2018-08-16 07:18 | NUR ---
still complaining of abdm pain, vaginal itching, cleaned as best able, saline locked, room air, call light in reach, handed off to returning nurse
--- NOTE | 2018-08-16 08:18 | NUR ---
PT REPORTS NAUSEA AT THIS TIME, MEDICATED WITH 4MG IV ZOFRAN PER EMAR. WILL MONITOR
--- NOTE | 2018-08-16 19:25 | NUR ---
NO ACUTE CHANGES NOTED THIS SHIFT. PT UP TO BATHROOM FREQUENTLY TODAY. CONTINUES TO C/O OF ABD PAIN, TAKES PO DILAUDID TO GOOD EFFECT. WILL CONTINUE TO MONITOR AND REPORT TO ONCOMING RN
--- NOTE | 2018-08-16 23:06 | NUR ---
pt requested dr esquivel to be taken off of her diet, he stated that he would instruct the nurse to place her on a regular diet, he also stated that the blood the pt had noted was to be expected, will continue to monitor and treat as appropriate
[2018-08-17 05:33] LABS: BASOPHILS ABSOLUTE AUTO 0.06 K/mm3 (0.00-0.23); BASOPHILS PERCENT AUTO 0 % (0-2); EOSINOPHILS ABSOLUTE AUTO 0.06 K/mm3 (0.00-0.68); EOSINOPHILS PERCENT AUTO 0 % (0-6); Hematocrit 29.6 % (33.0-51.0); Hemoglobin 8.8 g/dL (11.5-16.0); IMMATURE GRAN ABSOLUTE AUTO 0.16 K/mm3 (0.00-0.10); IMMATURE GRAN PERCENT AUTO 1 % (0-1); LYMPHOCYTES ABSOLUTE AUTO 1.77 K/mm3 (0.84-5.20); LYMPHOCYTES PERCENT AUTO 10 % (21-46); MONOCYTES ABSOLUTE AUTO 1.09 K/mm3 (0.16-1.47); MONOCYTES PERCENT AUTO 6 % (4-13); Mean Corpuscular HGB 22.3 pg (26.0-34.0); Mean Corpuscular HGB Conc 29.7 g/dL (31.5-36.5); Mean Corpuscular Volume 75 fL (80-100); Mean Platelet Volume 9.6 fL (9.1-12.4); NEUTROPHILS ABSOLUTE AUTO 14.02 K/mm3 (1.96-9.15); NEUTROPHILS PERCENT AUTO 82 % (41-73); NRBC ABSOLUTE 0.04 K/mm3 (0.00-0.02); NRBC Auto 0.2 /100 WBC (0.0-0.2); Platelet Count 381 K/mm3 (150-400); RDW Coefficient Variation 21.4 % (11.7-14.2); RDW Standard Deviation 54.7 fL (35.1-46.3); Red Blood Cell Count 3.95 M/mm3 (3.80-5.20); White Blood Cell Count 17.16 K/mm3 (4.00-11.30)
[2018-08-17 05:50] LABS: Albumin, Blood 2.3 g/dL (3.4-5.0); Anion Gap 12 mmol/L (6-16); Blood Urea Nitrogen 54 mg/dL (8-24); Bun/Creatinine Ratio 19.1 (12.0-20.0); CO2, Blood 22 mmol/L (21-32); Calcium, Blood 8.3 mg/dL (8.5-10.1); Chloride, Blood 106 mmol/L (98-108); Creatinine, Blood 2.82 mg/dL (0.40-1.00); Glomerular Filtration Rate 18 (60-); Glucose, Blood 127 mg/dL (70-99); Magnesium, Blood 1.5 mg/dL (1.6-2.4); Phosphorus, Blood 2.3 mg/dL (2.5-4.9); Potassium, Blood 3.6 mmol/L (3.5-5.5); Sodium, Blood 140 mmol/L (136-145)
--- NOTE | 2018-08-17 07:02 | NUR ---
a+o, scratching inderjit area dispite it being cleaned and washed post bm, call light in reach, saline locked, room air,abmn pain, edema blle, walking rounds completed with day staff
[2018-08-17] MEDS ORDERED: PANT20 PO (12:24)
== END 2018-08-17 13:53 | disposition home health service (06) | DRG 682 ==
LOC: ER 09:08 → PCU 15:41 → MEDS 15:41 → PCU 16:16 → MEDS 08-14 12:13 → ENPENDDIS 08-17 11:34 → MEDS 08-17 13:53
PROVIDERS: Emergency Medicine; Hospitalist; Internal Medicine Nephrology; Nurse Practitioner Acute Care; ADMIT Family Medicine
PROC: 0T943ZZ Drainage of Left Kidney Pelvis, Percutaneous Approach (ICD-10-PCS; principal; 2018-08-13)
PROC: 0T933ZZ Drainage of Right Kidney Pelvis, Percutaneous Approach (ICD-10-PCS; 2018-08-13)
DX: N17.9 Acute kidney failure, unspecified (principal); G92 Toxic encephalopathy; R65.11 Systemic inflammatory response syndrome (SIRS) of non-infectious origin with acute organ dysfunction; C78.7 Secondary malignant neoplasm of liver and intrahepatic bile duct; E87.1 Hypo-osmolality and hyponatremia; L03.90 Cellulitis, unspecified; Z68.41 Body mass index [BMI] 40.0-44.9, adult; N39.0 Urinary tract infection, site not specified; N13.9 Obstructive and reflux uropathy, unspecified; D63.0 Anemia in neoplastic disease; D47.3 Essential (hemorrhagic) thrombocythemia; K21.9 Gastro-esophageal reflux disease without esophagitis; E66.01 Morbid (severe) obesity due to excess calories; F17.210 Nicotine dependence, cigarettes, uncomplicated; J44.9 Chronic obstructive pulmonary disease, unspecified; Z85.42 Personal history of malignant neoplasm of other parts of uterus
CPT/HCPCS: 36415; 50432; 74176; 80048; 80053; 80069; 81001; 83735; 84100; 84132; 85014; 85018; 85025; 85027; 87040; 87086; 87147; 93970; 94760; 96374; 96375; 96376; 97162; 97530; 99152; 99153; 99285-25; C1729; C1769; C9113; J0360; J0696; J0881; J1170; J2060; J2250; J2270; J2405; J3010; J3475; J7030; J7050; J7060

== ENCOUNTER 2018-08-21 09:39 | Emergency (ER) | payer OTHER ==
[~2018-08-21] VITALS: Ht 162.6 cm; Wt 90.7 kg
[~2018-08-21 09:39] MED LIST changes: +**INCOMPLETE MED REC; +ALLO100 PO; +GAVILAX17 GM PO; +ONDA8 PO; +OXYC5 PO; +PANT20 PO; +Senna Plus Tab1 EACH PO; +XARELTO20 MG PO
[2018-08-21 10:40] LABS: BASOPHILS ABSOLUTE AUTO 0.04 K/mm3 (0.00-0.23); BASOPHILS PERCENT AUTO 0 % (0-2); EOSINOPHILS ABSOLUTE AUTO 0.03 K/mm3 (0.00-0.68); EOSINOPHILS PERCENT AUTO 0 % (0-6); Hematocrit 32.1 % (33.0-51.0); Hemoglobin 9.3 g/dL (11.5-16.0); IMMATURE GRAN ABSOLUTE AUTO 0.35 K/mm3 (0.00-0.10); IMMATURE GRAN PERCENT AUTO 2 % (0-1); LYMPHOCYTES ABSOLUTE AUTO 1.56 K/mm3 (0.84-5.20); LYMPHOCYTES PERCENT AUTO 7 % (21-46); MONOCYTES ABSOLUTE AUTO 1.23 K/mm3 (0.16-1.47); MONOCYTES PERCENT AUTO 6 % (4-13); Mean Corpuscular HGB 22.7 pg (26.0-34.0); NEUTROPHILS ABSOLUTE AUTO 18.62 K/mm3 (1.96-9.15); NEUTROPHILS PERCENT AUTO 85 % (41-73); NRBC ABSOLUTE 0.31 K/mm3 (0.00-0.02); NRBC Auto 1.4 /100 WBC (0.0-0.2); Platelet Count 396 K/mm3 (150-400); RDW Coefficient Variation 23.2 % (11.7-14.2); White Blood Cell Count 21.83 K/mm3 (4.00-11.30)
[2018-08-21] MEDS ORDERED: ALLO100 PO (10:40)
[2018-08-21] MEDS ORDERED: ONDA8 SL (10:40)
[2018-08-21] MEDS ORDERED: PANT20 PO (10:41)
[2018-08-21] MEDS ORDERED: MIRALAX17 GM PO (10:41)
[2018-08-21] MEDS ORDERED: SENN187 PO (10:41)
[2018-08-21] MEDS ORDERED: Oxycodone HCl5 M1 PO (10:41)
[2018-08-21] MEDS ORDERED: TRAM50 PO (10:42)
[2018-08-21 10:47] LABS: Mean Corpuscular Volume 78 fL (80-100)
[2018-08-21 11:27] LABS: Albumin, Blood 2.4 g/dL (3.4-5.0); Albumin/Globulin Ratio 0.5 (0.8-1.8); Bilirubin, Total 1.2 mg/dL (0.1-1.0); Bun/Creatinine Ratio 17.3 (12.0-20.0); Calcium, Blood 7.4 mg/dL (8.5-10.1); Creatinine, Blood 5.02 mg/dL (0.40-1.00); Globulin, Blood 4.6 g/dL (2.2-4.0); Potassium, Blood 5.7 mmol/L (3.5-5.5)
[2018-08-21 11:52] LABS: Source, Urine Clean Catch
[2018-08-21 11:59] LABS: Appearance, Urine Cloudy (Clear); Blood, Urine 5+ (Neg); Color, Urine Yellow (P-Yellow); Glucose Qualitative, Urine Neg (Neg); Ketones, Urine 1+ (Neg); Leukocyte Esterase, Urine 3+ (Neg); Nitrite, Urine Neg (Neg); Protein, Urine 3+ (Neg); Urobilinogen, Urine 1+ (Normal)
[2018-08-21 12:06] LABS: Bilirubin, Urine 1+ (Neg)
[2018-08-21 12:08] LABS: Granular Casts 0-2 /lpf (0); Red Blood Cells, Urine 25-50 /hpf (0-2)
[2018-08-21 12:09] LABS: Squamous Epithelial Cells Few /hpf (Few)
[2018-08-21 12:10] LABS: Bacteria Many /hpf
[2018-08-21 12:11] LABS: Yeast/Fungi Urine Few /hpf
[2018-08-21] MEDS ORDERED: Kristalose20 GM PO (14:31)
--- NOTE | 2018-08-21 14:44 | NUR ---
Initial Visit: Palliative Care Consult for Comfort Care/Hospice. Spoke with Dr Roblero and he reports poor prognosis for Pt and would like Palliative Care to discuss goals of care including options for comfort care and hospice. This RN was present when Dr Roblero discussed Pt's condition and prognosis. Dr Roblero answered questions for family and offered options. Family and Pt decide hospice is best for Pt. This RN remained after Dr Roblero departed from the room and offered emotional support and answered questions. Educated family on hospice philosophy with V/U made by Pt. Continued therapeutic conversation regarding Pt's needs of care. Family report Pt is unable to get out of bed, requires assistance with dressing, bathing, and has a urostomy drain tube for each kidney. Pt has not eaten in several days and has not had a BM in several days. ADL's 5/6 PPS 30% KPS 30% Plan: Pt to go home on hospice. Father Vahid visit with Pt and family. Digital Developer Nery working on ED discharge plan for Pt to go home on hospice. Dr Roblero gave ED nurse Cassandra V/O for Pt to receive morphin via IV. Will remain available for symptom management.
== END 2018-08-21 20:28 | disposition home or self-care (01) ==
LOC: ER 09:39
PROVIDERS: Physician Assistant
DX: A41.9 Sepsis, unspecified organism (principal); R65.20 Severe sepsis without septic shock; K72.00 Acute and subacute hepatic failure without coma; N39.0 Urinary tract infection, site not specified; Z88.5 Allergy status to narcotic agent; Z88.8 Allergy status to other drugs, medicaments and biological substances; Z88.1 Allergy status to other antibiotic agents; Z79.899 Other long term (current) drug therapy; J44.9 Chronic obstructive pulmonary disease, unspecified; G43.909 Migraine, unspecified, not intractable, without status migrainosus; I10 Essential (primary) hypertension; F32.9 Major depressive disorder, single episode, unspecified
CPT/HCPCS: 36415; 70450; 74022; 74176; 80053; 81001; 82140; 83605; 85025; 87086; 96361; 96365; 96375; 96376; 99285-25; J0696; J2270; J7030